=== PATIENT | male | born 1960 ===

== ENCOUNTER 2025-06-10 06:26 | Day surgery (SDC) | payer BC, SELFPAY | END 2025-06-10 14:43 | disposition home or self-care (01) | LOC: GI 06:26 | PROVIDERS: ATTENDING PHYSICIAN Internal Medicine Gastroenterology | DX: Z12.11 Encounter for screening for malignant neoplasm of colon (principal); K51.50 Left sided colitis without complications; K52.3 Indeterminate colitis; K83.01 Primary sclerosing cholangitis; K57.10 Diverticulosis of small intestine without perforation or abscess without bleeding; D50.0 Iron deficiency anemia secondary to blood loss (chronic); K64.8 Other hemorrhoids; K64.4 Residual hemorrhoidal skin tags | CPT/HCPCS: 45380; 43239; 88305 ==